=== PATIENT | female | born 1995 | race Caucasian/White ===

== ENCOUNTER 2019-04-06 19:44 | Emergency (ER) | payer MEDICAID ==
[~2019-04-06] VITALS: Ht 162.6 cm; Wt 67.6 kg
[2019-04-06 19:57] VITALS: BP 135/85
== END 2019-04-07 00:16 | disposition left against medical advice (07) ==
LOC: ER 19:44
DX: R51 Headache (principal); Z53.21 Procedure and treatment not carried out due to patient leaving prior to being seen by health care provider

== ENCOUNTER 2021-07-15 12:42 | Emergency (ER) | payer MEDICAID, OTHER ==
[~2021-07-15] VITALS: Ht 157.5 cm; Wt 73.0 kg
[2021-07-15] MEDS ORDERED: SODIUM CHLORIDE 0.9% 1,000 ML IV ONE (16:00)
[2021-07-15 16:36] LABS: HEMATOCRIT. 39.5 % (36.0-48.0); HEMOGLOBIN. 12.7 g/dL (12.0-16.0); MEAN CORPUSCULAR HEMOGLOBIN 26.6 pg (28.0-32.0); MEAN CORPUSCULAR VOLUME 82.9 fL (81.0-99.0); MEAN PLATELET VOLUME 8.8 fl (7.4-10.4); PLATELET 335 x1000/uL (130-400); RED BLOOD CELL COUNT 4.76 mill/uL (4.2-5.4); RED CELL DISTRIBUTION WIDTH 14.6 % (11.6-14.6)
[2021-07-15 16:40] LABS: CHLORIDE 111 mEq/L (98-107)
[2021-07-15 16:43] LABS: HCG SCREEN NEGATIVE
[2021-07-15 18:33] LABS: PLATELET ESTIMATE NORMAL
[2021-07-15] MEDS ORDERED: KETOROLAC 30MG/ML VIAL IV ONE (19:00)
[2021-07-15] MEDS ORDERED: MORPHINE SULFATE 4 MG/ML CPJ (NOT FOR IM USE) IV ONE (19:45)
[2021-07-15] MEDS ORDERED: IOHEXOL-300 100 ML BOTTLE ONE (21:34)
[2021-07-15 22:17] VITALS: BP 116/59
== END 2021-07-15 22:29 | disposition short-term general hospital (02) ==
LOC: ER 12:42
DX: S22.41XA Multiple fractures of ribs, right side, initial encounter for closed fracture (principal); S22.20XA Unspecified fracture of sternum, initial encounter for closed fracture; S00.81XA Abrasion of other part of head, initial encounter; S70.12XA Contusion of left thigh, initial encounter; S40.012A Contusion of left shoulder, initial encounter; S00.11XA Contusion of right eyelid and periocular area, initial encounter; V44.5XXA Car driver injured in collision with heavy transport vehicle or bus in traffic accident, initial encounter; Y93.89 Activity, other specified; Y92.488 Other paved roadways as the place of occurrence of the external cause
CPT/HCPCS: 36415; 70450; 71250; 72050; 74177; 80053; 83690; 84484; 84703; 85025; 93005; 96361; 96374; 96375; 99285; J1885; J2270; J7030; Q9967